=== PATIENT | female | born 1980 | race Caucasian/White ===

== ENCOUNTER 2019-01-10 09:24 | Day surgery (SDC) | payer BC, SELFPAY ==
[2019-01-10 10:10] VITALS: BMI 32.1
[2019-01-10 10:19] VITALS: BP 124/71; TEMP 98.9
[2019-01-10 10:57] LABS: Amnisure Test No Membranes Rupture (No Rupture)
[2019-01-10 10:58] LABS: Amnisure Internal Control QC ACCEPTABLE (ACCEPTABLE)
[2019-01-10] MEDS ORDERED: hydrALAZINE 20 MG/ML VIAL SLOW IVP PRN (11:02)
--- NOTE | 2019-01-10 14:24 | PRG ---
DATE OF SERVICE: 01/10/2019 PRIMARY OB: Dr. Maycol Jaeger. CHIEF COMPLAINT: Decreased movement and leakage of fluid. HISTORY OF PRESENT ILLNESS: The patient is a 38-year-old G3, P1 female with an intrauterine at 34 weeks gestation and 1 day presenting with decreased movement today and some leaking of fluid that she has been noticing over the last couple of days. The patient has a history of premature rupture of membranes at 36 weeks with her previous and was just worried that may be happening again. The patient denies any discharge or any irritation. She denies fever, fall, headache, chest pain, shortness of breath. She has had some nausea. Denies vomiting. Denies diarrhea or constipation. Denies any hip problems, knee problems, muscle weakness. Denies any new rashes. Denies vaginal bleeding or urinary urgency or frequency. PAST MEDICAL HISTORY: Asthma and migraines. PAST SURGICAL HISTORY: She has had surgery on her left thumb, her left eye, her septum. ALLERGIES: NO KNOWN DRUG ALLERGIES. MEDICATIONS: 1. Bonjesta. 2. Combivent. 3. Montelukast. 4. vitamins. SOCIAL HISTORY: Denies drug, alcohol, or tobacco use. OB LABS: Blood type is A positive. Antibody screen is negative. VDRL is nonreactive in first trimester. Hepatitis B surface antigen is nonreactive in the first trimester. HIV is nonreactive in the first trimester and the third trimester. GC chlamydia are negative in the first trimester. She is rubella immune. Diabetic screening is 121 VDRL nonreactive in the 3 trimester. REVIEW OF SYSTEMS: Per HPI. PHYSICAL EXAMINATION: VITAL SIGNS: Blood pressure 124/71, heart rate 82, respiratory rate of 18, saturating 97% on room air, temperature 98.7. GENERAL: She appears to be in no acute distress. She is alert, oriented, cooperative, and pleasant to interact with. HEAD: Normocephalic and atraumatic. LUNGS: Clear to auscultation bilaterally. HEART: Has regular rate and rhythm. ABDOMEN: Gravid, soft, nontender. EXTREMITIES: Nontender and nonedematous. GENITOURINARY: Vulva without masses, lesions, or erythema. Vagina is moist. On speculum exam, she has a large amount of clumping yeasty discharge with a small amount of fluid present. AmniSure and VPIII are both collected. Cervical exam is closed, thick, and high. heart tracing shows the fetus with a baseline in the 140s, moderate long- term variability, positive 15 x 15 accelerations, no decelerations. Tocometer showing some irritability, but not felt by the patient. AmniSure test has returned back negative. VPIII is still pending. ASSESSMENT AND PLAN: The patient is a 38-year-old multiparous female with an intrauterine at 34 weeks, coming in for complaints of decreased movement and leakage of fluid. The patient has been given reassurance as the fetus has a category 1 tracing and reactive NST and there is no evidence of rupture of membranes at this time with a negative AmniSure test and no clear pooling. The patient does have a clear yeast infection, which we have counseled she takes something over the counter such as Monistat 7 for treatment and then re- evaluation infection. We have VPIII pending, but I do not feel necessary for the patient to wait for these results as this is going to take an hour or so to get come back. The patient is being discharged home with labor precautions and has follow up with Dr. Jaeger on Tuesday. Job ID: [id number] [facility] CENTERMichell
== END 2019-01-10 11:10 | disposition home or self-care (01) ==
LOC: L&D/OP 09:24
PROVIDERS: ATTEND Obstetrics & Gynecology
DX: O36.8130 Decreased fetal movements, third trimester, not applicable or unspecified (principal); O99.89 Other specified diseases and conditions complicating pregnancy, childbirth and the puerperium; N89.8 Other specified noninflammatory disorders of vagina; O09.523 Supervision of elderly multigravida, third trimester; O99.513 Diseases of the respiratory system complicating pregnancy, third trimester; J45.909 Unspecified asthma, uncomplicated; O98.813 Other maternal infectious and parasitic diseases complicating pregnancy, third trimester; B37.9 Candidiasis, unspecified; Z3A.34 34 weeks gestation of pregnancy; Z79.899 Other long term (current) drug therapy
CPT/HCPCS: 84112; 87480; 87510; 87660; 99285

== ENCOUNTER 2019-01-29 09:20 | Inpatient (IN) | payer BC ==
[2019-01-29] MEDS ORDERED: HYDROcodone/Acetaminophen 5/325 mg Tablet PO PRN ×3 (10:16→23:00)
[2019-01-29] MEDS ORDERED: Lidocaine 1% (PF) 30 ML VIAL SC PRN (10:16)
[2019-01-29] MEDS ORDERED: Ibuprofen 800 MG TAB PO PRN (10:16)
[2019-01-29] MEDS ORDERED: NS / Oxytocin 40 units/1000ml 1,000 ML IV PRN (10:16)
[2019-01-29 10:17] VITALS: BMI 34.4
[2019-01-29] MEDS ORDERED: Acetaminophen 500 MG TAB PO PRN (10:17)
[2019-01-29] MEDS ORDERED: Butorphanol Tartrate 1 MG/ML VIAL SLOW IVP PRN (10:17)
[2019-01-29] MEDS ORDERED: Promethazine HCl 25 MG/ML VIAL IM PRN ×2 (10:17→13:25)
[2019-01-29] MEDS ORDERED: Ondansetron PF 4 MG/2 ML Vial IVP PRN ×3 (10:17→23:00)
[2019-01-29] MEDS ORDERED: hydrALAZINE 20 MG/ML VIAL SLOW IVP PRN ×2 (10:17→23:00)
[2019-01-29] MEDS ORDERED: NS w/ Oxytocin 10 units 500 ML IV SCH ×2 (10:30)
[2019-01-29 10:32] LABS: Hemoglobin 13.5 g/dL (12.0-16.0); Mean Corpuscular HGB CONC 35.2 g/dL (32.0-36.0); Mean Corpuscular Hemoglobin 29.5 pg (27.0-31.0); Mean Corpuscular Volume 83.8 fL (78.0-98.0); Mean Platelet Volume 6.6 fL (7.4-10.4); Platelet Count 299 thou/uL (130-400); RBC Distribution Width 11.6 % (11.5-14.5); Red Blood Cell (RBC) Count 4.58 mill/uL (4.20-5.40); White Blood Cell (WBC) Count 11.3 thou/uL (4.8-10.8)
[2019-01-29] MEDS: Lactated Ringer's 1,000 ML IV SCH ×2 (10:46→12:54)
[2019-01-29 11:12] LABS: Syphilis Antibody Nonreactive (Nonreactive); Syphilis Antibody Index 0.05 S/CO (<1.00 Non-Reactive)
[2019-01-29 11:13] LABS: Hep B Surf Ag Non-Reactive S/CO (NonReactive)
[2019-01-29 11:32] LABS: ALT (SGPT) 14 U/L (8-55); AST (SGOT) 21 U/L (5-34); Albumin 3.8 g/dL (3.5-5.0); Alkaline Phosphatase 154 U/L (40-110); Anion Gap 17 mmol/L (10-20); BUN (Urea Nitrogen) 8 mg/dL (7.0-18.7); Bilirubin, Total 0.3 mg/dL (0.2-1.2); Calc. Creatinine Clearance 212 mL/min (70-130); Calcium 9.4 mg/dL (7.8-10.44); Carbon Dioxide 19 mmol/L (22-29); Chloride 102 mmol/L (98-107); Estimated GFR-MDRD Greater than 90; Glucose 105 mg/dL (70-105); Potassium 4.5 mmol/L (3.5-5.1); Protein, Total 6.8 g/dL (6.0-8.3); Sodium 133 mmol/L (136-145)
[2019-01-29] MEDS ORDERED: Fentanyl 4 mcg/Bup 0.1% Cadd 100 ML ONE ×2 (12:42→19:49)
--- NOTE | 2019-01-29 12:47 | PDOC.LDHP ---
Labor and Delivery H&P Chief complaint: scheduled induction (sent from clinic with elevated BP severe range) HPI: Pt has been following BP since last week when mild range BP noted in the office. Pt reports BP 150/100 this weekend and waking up with a OAKES and BP 180/ 100 this AM at home. Pt presented to office with BP 150s/110, resolution of OAKES. Indiction for delivery reviewed as pt is 36.6 weeks. Celestone given in the office @ 0855. Current gestational age (weeks): 36 Due date: 02/20/19 Dating criteria: first trimester ultrasound Grav: 3 Para: 1 OB History Details: PROM @ 37.5 weeks, Current complications: preeclampsia with severe features Abnormal US findings: No Past Medical History: Asthma Current medications: pre- vitamins Previous surgical history: other (septum, left thumb) Allergies/Adverse Reactions: Allergies Allergy/AdvReac Type Severity Reaction Status Date / Time butorphanol [From Stadol] AdvReac Mild Verified 01/29/19 09:58 Social history: none - Physical Exam Abnormal vital signs: admit BP 150/90 as highest General: NAD Heart: RRR Lungs: CTAB Abdomen: gravid Extremeties: no edema FHT: category 1 - Vaginal Exam cm dilated: 2 Effacement: 25% Station: -2 - OB Labs Blood type: A RH: positive Antibody Screen: negative HIV: negative RPR: negative HEPSAg: negative 1 hour GCT: negative GBS: negative Urine drug screen: negative Rubella: immune - Assessment L&D Assessment: medically indicated induction - Plan Plan: admit to L&D, cervical ripening, labor augmentation if indicated, informed consent obtained, magnesium for seizure prophylaxis (for severe range BP if indicated), anesthesia consult for pain management -: A/P: IOL @ 36.6 weeks for worsening PIH and concern for progression to severe PIH> Admit, IOL, magnesium if indicated for seizure prophylaxis.
[2019-01-29] MEDS ORDERED: Lactated Ringer's 500 ML IV PRN (13:25)
[2019-01-29] MEDS ORDERED: ePHEDrine/0.9% NaCl/PF SYRINGE 50 mg/10 ml SLOW IVP PRN (13:25)
[2019-01-29] MEDS ORDERED: diphenhydrAMINE 50 MG/ML VIAL IVP PRN (13:25)
[2019-01-29] MEDS ORDERED: Naloxone HCl 0.4 mg/ml Vial IVP PRN ×2 (13:25)
[2019-01-29] MEDS ORDERED: Acetaminophen 325 MG TAB PO PRN (13:25)
[2019-01-29] MEDS ORDERED: Communication Order-Pharmacy FS PRN (13:30)
[2019-01-29] MEDS ORDERED: Fentanyl 4 mcg/Bupivacaine 0.1% Cassette 100 ML EPIDURAL SCH (13:30)
[2019-01-29] MEDS ORDERED: Bupivacaine 0.25% 10 ML VIAL ONE (15:00)
--- NOTE | 2019-01-29 21:30 | PDOC.OPDEL ---
OB Operative/Delivery Note Delivery Dr/Surgeon: Mil Pre-Delivery Diagnosis: medically indicated induction (PIH) Procedure/Post Delivery Dx: spontaneous vaginal delivery Weeks gestation: 36 - Findings A Sex: female - 1 min: 8 - 5 min: 9 - Additional Findings/Plan Placenta delivered: spontaneous Repaired Obstetrical Laceration: 2nd degree Estimated blood loss: 75ml Compilations/Other Findings: BP mild to normal range during labor Post delivery plan: routine recovery
[2019-01-29] MEDS ORDERED: NS / Oxytocin 40 units/1000ml 1,000 ML IV SCH (23:00)
[2019-01-29] MEDS ORDERED: Lanolin Ointment 7 GM TUBE TOP PRN (23:00)
[2019-01-29] MEDS ORDERED: Bisacodyl 10 MG SUPP PR PRN (23:00)
[2019-01-29] MEDS ORDERED: Milk Of Magnesia 30 ML UDCUP PO PRN (23:00)
[2019-01-29] MEDS ORDERED: diphenhydrAMINE 25 MG CAP PO PRN (23:00)
[2019-01-29] MEDS ORDERED: Benzocaine-Menthol 82.5 ML CAN TOP PRN (23:00)
[2019-01-30] MEDS: Ibuprofen 800 MG TAB PO SCH ×3 (05:22→21:22)
[2019-01-30] MEDS: Ferrous Sulfate 325 MG TAB PO SCH ×2 (07:47→14:32)
--- NOTE | 2019-01-30 08:50 | PDOC.PP ---
Post Progress Note Post Day #: 1 Subjective: doing well, some cramps w nursing, normal lochia, no PIH sx PO intake tolerated: yes Flatus: yes Ambulation: yes Vital Signs (12 hours) Temp Pulse Resp BP Pulse Ox 01/30/19 08:20 97.6 F 90 20 116/63 97 01/30/19 05:15 97.7 F 83 18 123/72 01/30/19 00:00 97.9 F 99 18 100/59 L 98 Weight Weight 220 lb - Physical Examination General: NAD Respiratory: non-labored breathing Abdominal: no distention Fundus firm & at: below umb Skin: no rash Psychiatric: A&Ox3, normal affect Result Diagrams: 01/29/19 10:21 01/29/19 10:21 Additional Labs: Post Labs Blood Type A POSITIVE 01/29/19 10:21 Hep Bs Antigen Non-Reactive S/CO (NonReactive) 01/29/19 10:21 (1) 36 weeks gestation of Code(s): Z3A.36 - 36 WEEKS GESTATION OF Status: Acute (2) Preeclampsia Code(s): O14.90 - UNSPECIFIED PRE-ECLAMPSIA, UNSPECIFIED TRIMESTER Status: Acute Qualifiers: Trimester: third trimester Qualified Code(s): O14.93 - Unspecified pre- eclampsia, third trimester (3) Vaginal delivery Code(s): O80 - ENCOUNTER FOR FULL-TERM UNCOMPLICATED DELIVERY Status: Acute - Assessment/Plan PPD1 doing well, sp IOL @ 36.6 for preeclampsia with severe features. Doing well, BP resolved to patient normal baseline since delivery. Likely DC tomorrow.
[2019-01-30] MEDS ORDERED: Adacel (T-DAP) 0.5 ML SYRINGE IM ONE (09:00)
[2019-01-30] MEDS: Docusate Calcium (SURFAK) 240 MG CAP PO SCH ×2 (09:11→21:20)
[2019-01-30] MEDS: Prenatal Vitamin 1 TAB PO SCH (09:11)
[2019-01-30] MEDS: HYDROcodone/Acetaminophen 5/325 mg Tablet PO PRN ×3 (12:29→21:21)
[2019-01-31] MEDS: HYDROcodone/Acetaminophen 5/325 mg Tablet PO PRN (01:48)
[2019-01-31] MEDS: Ibuprofen 800 MG TAB PO SCH ×2 (05:20→14:04)
[2019-01-31 08:25] VITALS: BP 128/64; TEMP 97.6
[2019-01-31] MEDS: Ferrous Sulfate 325 MG TAB PO SCH ×2 (09:01→16:15)
[2019-01-31] MEDS: Docusate Calcium (SURFAK) 240 MG CAP PO SCH (09:03)
[2019-01-31] MEDS: Prenatal Vitamin 1 TAB PO SCH (09:03)
--- NOTE | 2019-01-31 11:07 | PDOC.PP ---
Post Progress Note Post Day #: 2 Subjective: doing well, no concerns, baby under lights PO intake tolerated: yes Flatus: yes Ambulation: yes Vital Signs (12 hours) Temp Pulse Resp BP Pulse Ox 01/31/19 08:25 97.6 F 80 20 128/64 97 Weight Weight 220 lb - Physical Examination General: NAD Respiratory: non-labored breathing Neurological: no gross focal deficits Psychiatric: A&Ox3, normal affect Result Diagrams: 01/29/19 10:21 01/29/19 10:21 Additional Labs: Post Labs Blood Type A POSITIVE 01/29/19 10:21 Hep Bs Antigen Non-Reactive S/CO (NonReactive) 01/29/19 10:21 (1) 36 weeks gestation of Code(s): Z3A.36 - 36 WEEKS GESTATION OF Status: Acute (2) Preeclampsia Code(s): O14.90 - UNSPECIFIED PRE-ECLAMPSIA, UNSPECIFIED TRIMESTER Status: Acute Qualifiers: Trimester: third trimester Qualified Code(s): O14.93 - Unspecified pre- eclampsia, third trimester (3) Vaginal delivery Code(s): O80 - ENCOUNTER FOR FULL-TERM UNCOMPLICATED DELIVERY Status: Acute - Assessment/Plan PPD2 doing well, will likely stay as B and B. BP WNL.
== END 2019-01-31 18:50 | disposition home or self-care (01) | DRG 807 ==
LOC: L&D 09:20 → 3SW 01-30 00:36
PROVIDERS: ADMIT Obstetrics & Gynecology; ATTEND Obstetrics & Gynecology
PROC: 10E0XZZ Delivery of Products of Conception, External Approach (ICD-10-PCS; principal; 2019-01-29)
PROC: 0KQM0ZZ Repair Perineum Muscle, Open Approach (ICD-10-PCS; 2019-01-29)
PROC: 10907ZC Drainage of Amniotic Fluid, Therapeutic from Products of Conception, Via Natural or Artificial Opening (ICD-10-PCS; 2019-01-29)
PROC: 3E0P7VZ Introduction of Hormone into Female Reproductive, Via Natural or Artificial Opening (ICD-10-PCS; 2019-01-29)
PROC: 3E033VJ Introduction of Other Hormone into Peripheral Vein, Percutaneous Approach (ICD-10-PCS; 2019-01-29)
DX: O14.14 Severe pre-eclampsia complicating childbirth (principal); Z37.0 Single live birth; J45.909 Unspecified asthma, uncomplicated; O99.52 Diseases of the respiratory system complicating childbirth; O70.1 Second degree perineal laceration during delivery; Z3A.36 36 weeks gestation of pregnancy; Z88.8 Allergy status to other drugs, medicaments and biological substances; Z79.51 Long term (current) use of inhaled steroids
CPT/HCPCS: 36415; 51702; 80053; 85027; 86780; 86850; 86900; 86901; 87340; J2405; J2590; S0020

== ENCOUNTER 2019-02-04 20:34 | Inpatient (IN) | payer BC ==
[2019-02-04] MEDS ORDERED: NIFEdipine 10 MG CAP PO SCH (22:00)
[2019-02-04 22:25] LABS: #Eosinphils 0.2 thou/uL (0.0-0.7); #Lymphocytes 2.3 thou/uL (1.20-3.40); #Monocytes 0.4 thou/uL (0.11-0.59); #Neutrophils 4.3 thou/uL (1.40-6.50); %Basophils 0.3 % (0.0-1.0); %Eosinophils 2.2 % (0.0-10.0); %Lymphocytes 32.4 % (21.0-51.0); Hemoglobin 12.3 g/dL (12.0-16.0); Mean Corpuscular Hemoglobin 29.7 pg (27.0-31.0); Mean Corpuscular Volume 87.4 fL (78.0-98.0); Mean Platelet Volume 5.7 fL (7.4-10.4); Platelet Count 331 thou/uL (130-400); RBC Distribution Width 11.5 % (11.5-14.5); Red Blood Cell (RBC) Count 4.14 mill/uL (4.20-5.40); White Blood Cell (WBC) Count 7.1 thou/uL (4.8-10.8)
[2019-02-04 22:49] LABS: ALT (SGPT) 60 U/L (8-55); AST (SGOT) 26 U/L (5-34); Albumin 3.5 g/dL (3.5-5.0); Alkaline Phosphatase 100 U/L (40-110); Anion Gap 10 mmol/L (10-20); BUN (Urea Nitrogen) 17 mg/dL (7.0-18.7); Bilirubin, Total 0.2 mg/dL (0.2-1.2); Calc. Creatinine Clearance 0 mL/min (70-130); Calcium 8.8 mg/dL (7.8-10.44); Carbon Dioxide 28 mmol/L (22-29); Chloride 104 mmol/L (98-107); Estimated GFR-MDRD 85; Globulin 2.9 g/dL (2.4-3.5); Glucose 107 mg/dL (70-105); Lipase 14 U/L (8-78); Potassium 4.3 mmol/L (3.5-5.1); Protein, Total 6.4 g/dL (6.0-8.3); Sodium 138 mmol/L (136-145)
[2019-02-04 22:55] LABS: Creatinine, Urine 43.59 mg/dL (47-110); Microalbumin Urine Less than 1.0 mg/dL (0.5-50.0)
[2019-02-04] MEDS ORDERED: Labetalol HCl 100 MG/20 ML VIAL ONE (23:11)
[2019-02-04] MEDS ORDERED: Acetaminophen 500 MG TAB ONE (23:36)
[2019-02-04 23:48] LABS: INR-International Normal Ratio 0.9; PTT 29.7 SEC (22.9-36.1); Prothrombin Time 12.2 SEC (12.0-14.7)
[2019-02-05] MEDS ORDERED: Metoclopramide HCl 10 MG/2 ML VIAL ONE (00:20)
[2019-02-05] MEDS ORDERED: Zolpidem Tartrate 5 MG TAB PO PRN (02:08)
[2019-02-05] MEDS ORDERED: Calcium Gluconate 4.6 MEQ in Sodium Chloride 0.9% 100 ML IVPB PRN (02:08)
[2019-02-05] MEDS ORDERED: Ondansetron PF 4 MG/2 ML Vial IVP PRN (02:08)
[2019-02-05] MEDS ORDERED: Promethazine HCl 25 MG/ML VIAL IM PRN (02:08)
[2019-02-05] MEDS ORDERED: Butorphanol Tartrate 1 MG/ML VIAL SLOW IVP PRN ×2 (02:08→02:53)
[2019-02-05] MEDS ORDERED: Magnesium Sulfate 20 gm/500 ml 20 GM/500 ML BAG ONE (02:11)
[2019-02-05] MEDS: Lactated Ringer's 1,000 ML IV SCH ×3 (02:25→22:23)
[2019-02-05] MEDS ORDERED: Magnesium Sulfate 20 gm/500 ml 20 GM/500 ML BAG IVPB SCH (02:30)
[2019-02-05] MEDS ORDERED: Labetalol HCl 100 MG/20 ML VIAL SLOW IVP SCH (02:30)
[2019-02-05 02:38] VITALS: BMI 34.4
[2019-02-05] MEDS: Acetaminophen 325 MG TAB PO PRN ×2 (04:51→13:05)
--- NOTE | 2019-02-05 06:23 | PDOC.EVN ---
Event Note - Event Note Event Note: Resting, does c/o OAKES. Tylenol ordered. BPs 110-130/60-70 Mg at 2 gms/hr. Plan: Cont. Mg x 24 hrs and watch BP closely.
--- NOTE | 2019-02-05 07:34 | CT ---
PRELIMINARY REPORT/[facility]/EMERGENCY AFTER HOURS PROCEDURE PROCEDURE INFORMATION: Exam: CT Head Without Contrast Exam date and time: 02/05/2019 12:30 AM Age: 38 years old Clinical history: Headache; Cluster; Patient HX: F38 presents to ED C/O 6 days HTN. PT was induced for HTN. Swelling started when dc' d from l&d on Tuesday. PT reports mild abd pain and constant severe OAKES with photophobia x1 day. TECHNIQUE: Imaging protocol: Computed tomography of the head without contrast. COMPARISON: No relevant prior studies available. FINDINGS: Brain: Normal. No hemorrhage. Unremarkable white matter. No mass effect. Ventricles: Normal. No ventriculomegaly. Bones/joints: No acute fracture. Incidentally noted is a 1.3 cm round well-defined lucent lesion in the right occipital bone (image 7, series 3). Sinuses: Visualized sinuses are unremarkable. No fluid levels. Mastoid air cells: Visualized mastoid air cells are well aerated. Soft tissues: Unremarkable. IMPRESSION: 1. No acute intracranial abnormality. 2. Incidental note of a 1.3 cm lesion in the right occipital bone. 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 Thank you for allowing us to participate in the care of your patient. Dictated and Authenticated by: Vita Briones MD 02/05/2019 12:45 AM Central Time ([place] & [place]) FINAL REPORT CT HEAD NONCONTRAST: DATE: 02/05/2019 TIME: Performed on an emergency basis at 0031 hours. HISTORY: Headache. Hypertension. FINDINGS: No comparison. Findings agree with the preliminary report by Dr. Briones from [facility]. No acute intracranial abnormalities are demonstrated. 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 Transcribed Date/Time: 02/05/2019 8:24 AM
--- NOTE | 2019-02-05 08:39 | HP ---
REGULAR PHYSICIAN: Maycol Jaeger DO, MS CHIEF COMPLAINT: Headache, elevated blood pressure at home. HISTORY OF PRESENT ILLNESS: Ms. Ortiz is a 38-year-old white G2, now P2, who is status post vaginal delivery six days ago by Dr. Maycol Jaeger. She states she was induced for elevated blood pressures, but was never given magnesium. She reports an uneventful course. She states she began having headache yesterday, came to the emergency room this evening, and had a blood pressure there of 183/113. In the ER, she was given magnesium and treated with Adalat for blood pressure. CT scan done in the ER shows no evidence of intracerebral bleed. PAST OBSTETRICAL HISTORY: Includes two vaginal deliveries. PAST MEDICAL HISTORY: None. PAST SURGICAL HISTORY: Includes surgery to her thumb and right foot. CURRENT MEDICATIONS: vitamins. ALLERGIES: NO KNOWN ALLERGIES. SOCIAL HISTORY: Denies tobacco, alcohol, or drug use. FAMILY HISTORY: Unremarkable. REVIEW OF SYSTEMS: Denies nausea, vomiting, fever, or chills. Positive for headache. Negative for blurry vision. PHYSICAL EXAMINATION: VITAL SIGNS: Blood pressure currently in L and D is 130/74 and pulse is 77. GENERAL: She is pleasant, no acute distress. CHEST: Clear to auscultation. CARDIOVASCULAR: Regular rate and rhythm. ABDOMEN: Soft and nontender. PELVIC: Deferred. LABORATORY DATA: White count 7.1, hemoglobin 12.3, hematocrit 36.2, and platelet count 331,000. PT 12.2, PTT 29.7, and fibrinogen 366. Sodium 138, potassium 4.3, creatinine 0.76, glucose 107, total bilirubin 0.2, AST 26, and ALT 60. ASSESSMENT: preeclampsia with severe pressures. PLAN: The patient will be admitted to Labor and Delivery. Magnesium will be continued, and her blood pressures will be controlled as needed. Anticipate her being on magnesium for 24 hours. Her blood pressures will be watched closely. Dr. Jaeger is out of town, and her care will be provided by the OB hospitalist service. Job ID: [id number]
--- NOTE | 2019-02-05 13:32 | PDOC.EVN ---
Event Note - Event Note Event Note: PT here with post preeclampsia on mag with controlled bp only with initial adalat ang mag. Pt reports h/o migraines and feels she is getting one. PT usually takes imitrex. is open to trying iv benadryl and reglan 02/05/192129 Headache resolved with imitrex. PT diuresing 3-700cc/hr last several hours. Will dc masg now. vitals reviewed and wnl. occasional mild range bp. no severe since admission. will tx to post for 24hr -monitor bp.
[2019-02-05] MEDS: Metoclopramide HCl 10 MG/2 ML VIAL IVP PRN ×2 (13:43→14:51)
[2019-02-05] MEDS: diphenhydrAMINE 50 MG/ML VIAL IVP PRN ×2 (13:43→14:51)
[2019-02-05] MEDS: SUMAtriptan Succinate 50 MG TAB PO SCH ×2 (18:02→21:14)
[2019-02-05] MEDS ORDERED: NS / Oxytocin 40 units/1000ml 1,000 ML IV SCH (21:46)
[2019-02-05] MEDS ORDERED: Milk Of Magnesia 30 ML UDCUP PO PRN (21:46)
[2019-02-05] MEDS ORDERED: Bisacodyl 10 MG SUPP PR PRN (21:46)
[2019-02-05] MEDS ORDERED: Lanolin Ointment 7 GM TUBE TOP PRN (21:46)
[2019-02-05] MEDS ORDERED: Adacel (T-DAP) 0.5 ML SYRINGE IM ONE (21:46)
[2019-02-05] MEDS ORDERED: hydrALAZINE 20 MG/ML VIAL SLOW IVP PRN (21:46)
[2019-02-05] MEDS: Ibuprofen 800 MG TAB PO SCH (22:42)
[2019-02-06] MEDS: Ibuprofen 800 MG TAB PO SCH ×2 (05:46→14:51)
[2019-02-06] MEDS: Ferrous Sulfate 325 MG TAB PO SCH ×2 (08:17→16:15)
[2019-02-06] MEDS ORDERED: Docusate Calcium (SURFAK) 240 MG CAP PO SCH (09:00)
[2019-02-06] MEDS ORDERED: Prenatal Vitamin 1 TAB PO SCH (09:00)
--- NOTE | 2019-02-06 09:10 | PRG ---
DATE OF SERVICE: 02/06/2019 SUBJECTIVE: The patient is a 38-year-old female, who was readmitted to the hospital for preeclampsia and was placed on magnesium for seizure prophylaxis and treated for severe-range blood pressures. Yesterday evening around 7 o'clock, we discontinued the magnesium as the patient has been diuresing extremely well with a total urine output of about 4 L since admission and diuresing 300 to 700 mL an hour. This morning, the patient reports that her headache is still gone as she was treated for migraine yesterday. She also denies any complaints or concerns. OBJECTIVE: VITAL SIGNS: Since coming to the floor, blood pressure 135/81, temperature 98.4, pulse 71, respiratory rate 18, saturating 98% on room air. Blood pressure max on the floor has been 142/69. GENERAL: She appears to be in no acute distress. She is alert, oriented, cooperative, and pleasant to interact with. ABDOMEN: Fundus is not palpable. EXTREMITIES: Minimal edema. ASSESSMENT AND PLAN: The patient is a 38-year-old female, preeclampsia, status post magnesium. If her blood pressures remained stable in the [id number] range, anticipate discharge this evening around [address] Babcock will be the oncoming physician to make that assessment. Job ID: [id number]
[2019-02-06 17:58] VITALS: BP 138/80; TEMP 98.5
--- NOTE | 2019-02-06 19:39 | PDOC.EVN ---
Event Note - Event Note Event Note: Wants to go home. No c/o. Mg dced 24 hrs ago. BP- 138/80, BPs today all nonsevere. Will DC home with precautions. RTC Dr Jaeger in 7-10 days. Rx. for Emetrex 100mg #9 per pt. request given.
--- NOTE | 2019-02-07 00:59 | DIS ---
DATE OF ADMISSION: 02/04/2019 DATE OF DISCHARGE: 02/06/2019 REGULAR PHYSICIAN: Maycol Jaeger DO, MS ADMITTING PHYSICIAN: Steve Babcock MD ADMITTING DIAGNOSIS: Late onset preeclampsia. DISCHARGE DIAGNOSIS: Late onset preeclampsia. BRIEF PATIENT DESCRIPTION AND HOSPITAL COURSE: Ms. Ortiz is a 38-year-old white G2, now P2, who presented six days after vaginal delivery by Dr. Maycol Jaeger. She stated that she had been delivered for elevated blood pressures at the time of her delivery. She states she had an uneventful course and did not require magnesium. She presented to the ER with severe range pressure and headache. She was loaded in the emergency room with 6 g of magnesium and had a CT scan that was nonfocal. She was sent to Labor and Delivery. In Labor and Delivery, she was started on magnesium and stayed on that for less than 24 hours. She diuresed quickly on magnesium. She was transferred to the floor and during her time there, she had reassuring blood pressures and no further symptomatology. She was sent home on the evening of 02/06/2019, doing well with instructions to follow up with Dr. Jaeger in the next 7-10 days. She voiced understanding of her discharge instructions and will make an appointment at [facility] for followup. She was given a prescription for Imitrex 100 mg #9 to be used on a p.r.n. basis for migraine headaches at home. Job ID: [id number]
== END 2019-02-06 20:10 | disposition home or self-care (01) | DRG 776 ==
LOC: ERS 20:34 → L&D 23:11 → 3SW 02-06 00:46
PROVIDERS: ADMIT Obstetrics & Gynecology; ATTEND Obstetrics & Gynecology
DX: O14.15 Severe pre-eclampsia, complicating the puerperium (principal); O99.355 Diseases of the nervous system complicating the puerperium; Z88.8 Allergy status to other drugs, medicaments and biological substances; G43.909 Migraine, unspecified, not intractable, without status migrainosus
CPT/HCPCS: 36415; 70450; 80053; 82043; 83615; 83690; 83735; 85025; 85379; 85384; 85610; 85730; 96365; 96367; J1200; J2765; J3475; J3490